=== PATIENT | male | born 1950 | race Caucasian/White ===

== ENCOUNTER 2016-07-15 17:26 | Inpatient (IN) | payer MEDICARE ==
[~2016-07-15] VITALS: Ht 170.2 cm; Wt 47.7 kg
[~2016-07-15 17:26] MED LIST: ATOR80TA75 PO; CARV3.122 PO
[2016-07-15 18:54] LABS: BLOOD UREA NITROGEN 42 mg/dL (7-18)
[2016-07-15 18:59] LABS: IS PT STATUS REG ER OR PRE ER? YES
[2016-07-15] MEDS ORDERED: MORPHINE SULFATE 4 MG/ML, 1ML IVPush PRN (20:00)
[2016-07-15] MEDS ORDERED: ENOXAPARIN 60 MG/0.6 ML SQ ONE (20:00)
[2016-07-15] MEDS ORDERED: NITROGLYCERIN OINT 2%, 1GM TP ONE ×2 (20:00→20:06)
[2016-07-15] MEDS ORDERED: MORPHINE SULFATE 4 MG/ML, 1ML ONE (20:05)
[2016-07-15] MEDS ORDERED: ENOXAPARIN 60 MG/0.6 ML ONE (20:06)
[2016-07-15] MEDS ORDERED: OMNIPAQUE 350 MG/ML, 75ML BOTTLE ONE (20:47)
[2016-07-15] MEDS ORDERED: POLYETHYLENE GLYCOL 17 GM PACKET PO PRN (21:00)
[2016-07-15] MEDS ORDERED: BISACODYL 10 MG SUPP PR PRN (21:00)
[2016-07-15] MEDS ORDERED: ASPIRIN 325 MG TABLET PO ONE (21:00)
[2016-07-15] MEDS ORDERED: ONDANSETRON 2MG/ML, 2ML IVP PRN (21:00)
[2016-07-15] MEDS ORDERED: NITROGLYCERIN 0.4 MG BOTTLE (25 TABS) SL PRN (21:00)
[2016-07-15 22:17] VITALS: BP 145/85
[2016-07-15 22:18] VITALS: BP 145/85
[2016-07-15 22:51] LABS: DAU SCREEN DISCLAIMER
[2016-07-15] MEDS: SODIUM CHLORIDE 0.9% 1,000 ML IV SCH (23:08)
[2016-07-15] MEDS: CARVEDILOL 3.125 MG TABLET PO SCH (23:09)
[2016-07-15] MEDS: ATORVASTATIN 80 MG TABLET PO SCH (23:10)
[2016-07-15] MEDS: NICOTINE 7 MG/24 HR PATCH.TD24 TD SCH ×2 (23:10→23:23)
[2016-07-15] MEDS: HEPARIN 5,000 UNITS/ML, 1ML SQ SCH ×2 (23:10→23:22)
[2016-07-15] MEDS: ACETAMINOPHEN 325 MG TABLET PO PRN (23:19)
[2016-07-16] MEDS: MORPHINE SULFATE 4 MG/ML, 1ML IVPush PRN ×6 (00:46→20:48)
[2016-07-16 01:19] LABS: IS PT STATUS REG ER OR PRE ER? NO
[2016-07-16 02:57] VITALS: BP 124/71
[2016-07-16] MEDS ORDERED: ASPIRIN 325 MG TABLET EC PO SCH (06:00)
[2016-07-16 07:14] LABS: BLOOD UREA NITROGEN 31 mg/dL (7-18)
[2016-07-16 07:20] LABS: ASPARTATE AMINO TRANSFERASE 20 U/L (15-37)
[2016-07-16 07:22] LABS: IS PT STATUS REG ER OR PRE ER? NO
[2016-07-16] MEDS: SENNA/DOCUSATE TABLET PO SCH (07:36)
[2016-07-16 08:04] VITALS: BP 137/90
[2016-07-16] MEDS: CARVEDILOL 3.125 MG TABLET PO SCH ×2 (08:07→20:50)
[2016-07-16] MEDS: SODIUM CHLORIDE 0.9% 1,000 ML IV SCH (08:12)
[2016-07-16] MEDS ORDERED: REGADENOSON 0.4 MG/5 ML SYRINGE ONE (10:21)
[2016-07-16] MEDS ORDERED: ALBUTEROL SULFATE 2.5 MG/3 ML ONE (11:36)
[2016-07-16] MEDS: ALBUTEROL/IPRATROPIUM 2.5MG/0.5MG, 3 ML NPPB PRN (11:49)
[2016-07-16 15:30] VITALS: BP 132/88
[2016-07-16] MEDS: HEPARIN 5,000 UNITS/ML, 1ML SQ SCH (18:16)
[2016-07-16 20:40] VITALS: BP 156/106
[2016-07-16] MEDS: ATORVASTATIN 80 MG TABLET PO SCH (20:49)
[2016-07-17 00:35] VITALS: BP 135/87
[2016-07-17] MEDS: HEPARIN 5,000 UNITS/ML, 1ML SQ SCH ×3 (01:00→17:00)
[2016-07-17] MEDS: MORPHINE SULFATE 4 MG/ML, 1ML IVPush PRN ×4 (03:50→19:48)
[2016-07-17] MEDS: ASPIRIN 81 MG TABLET CHEW PO SCH (04:43)
[2016-07-17] MEDS: SENNA/DOCUSATE TABLET PO SCH (08:00)
[2016-07-17] MEDS: CARVEDILOL 3.125 MG TABLET PO SCH ×2 (08:51→19:48)
[2016-07-17 09:04] VITALS: BP 117/81
[2016-07-17 14:36] VITALS: BP 133/89
[2016-07-17 19:41] VITALS: BP 154/89
[2016-07-17] MEDS: ATORVASTATIN 80 MG TABLET PO SCH (19:48)
[2016-07-17] MEDS: NICOTINE 7 MG/24 HR PATCH.TD24 TD SCH (19:49)
[2016-07-18 01:24] VITALS: BP 156/94
[2016-07-18] MEDS: MORPHINE SULFATE 4 MG/ML, 1ML IVPush PRN ×6 (01:32→21:14)
[2016-07-18] MEDS: HEPARIN 5,000 UNITS/ML, 1ML SQ SCH ×3 (01:39→17:43)
[2016-07-18] MEDS: ASPIRIN 81 MG TABLET CHEW PO SCH (06:05)
[2016-07-18 07:58] VITALS: BP 154/90
[2016-07-18] MEDS: SENNA/DOCUSATE TABLET PO SCH (09:00)
[2016-07-18] MEDS: ALBUTEROL/IPRATROPIUM 2.5MG/0.5MG, 3 ML NPPB PRN (09:24)
[2016-07-18] MEDS: CARVEDILOL 3.125 MG TABLET PO SCH ×2 (09:38→20:54)
[2016-07-18 12:49] VITALS: BP 120/85
[2016-07-18 15:45] VITALS: BP 163/94
[2016-07-18 19:37] VITALS: BP 133/85
[2016-07-18] MEDS: ATORVASTATIN 80 MG TABLET PO SCH (20:54)
[2016-07-18] MEDS: NICOTINE 7 MG/24 HR PATCH.TD24 TD SCH (20:55)
[2016-07-19] MEDS: MORPHINE SULFATE 4 MG/ML, 1ML IVPush PRN ×3 (00:29→09:08)
[2016-07-19] MEDS: HEPARIN 5,000 UNITS/ML, 1ML SQ SCH ×3 (00:29→16:44)
[2016-07-19 01:42] VITALS: BP 135/85
[2016-07-19] MEDS: ASPIRIN 81 MG TABLET CHEW PO SCH (05:15)
[2016-07-19] MEDS: CARVEDILOL 3.125 MG TABLET PO SCH ×2 (07:41→20:22)
[2016-07-19] MEDS: SENNA/DOCUSATE TABLET PO SCH (07:42)
[2016-07-19 08:00] VITALS: BP 140/107
[2016-07-19 13:39] VITALS: BP 149/79
[2016-07-19] MEDS ORDERED: ATOR80TA75 PO (13:57)
[2016-07-19] MEDS ORDERED: POTA10TA31 PO (13:57)
[2016-07-19] MEDS ORDERED: CARV3.122 PO (13:57)
[2016-07-19] MEDS ORDERED: ASPI-515 PO (13:57)
[2016-07-19] MEDS ORDERED: LISI5TAB7 PO (13:57)
[2016-07-19] MEDS ORDERED: FURO-93 PO (13:57)
[2016-07-19] MEDS ORDERED: SPIR25TA PO (13:58)
[2016-07-19] MEDS: ACETAMINOPHEN 325 MG TABLET PO PRN (15:44)
[2016-07-19 19:33] VITALS: BP 150/81
[2016-07-19] MEDS: ATORVASTATIN 80 MG TABLET PO SCH (20:21)
[2016-07-19] MEDS: OXYcodone/APAP 5/325MG TABLET PO PRN (20:22)
[2016-07-19] MEDS: NICOTINE 7 MG/24 HR PATCH.TD24 TD SCH (20:23)
[2016-07-19] MEDS: ALBUTEROL/IPRATROPIUM 2.5MG/0.5MG, 3 ML NPPB PRN (21:25)
[2016-07-19] MEDS ORDERED: LORazepam 0.5MG TABLET PO PRN (22:00)
[2016-07-20] MEDS: HEPARIN 5,000 UNITS/ML, 1ML SQ SCH ×2 (01:00→09:11)
[2016-07-20 01:03] VITALS: BP 129/76
[2016-07-20] MEDS: OXYcodone/APAP 5/325MG TABLET PO PRN ×2 (03:41→09:51)
[2016-07-20] MEDS: ASPIRIN 81 MG TABLET CHEW PO SCH (05:09)
[2016-07-20 07:47] VITALS: BP 147/82
[2016-07-20] MEDS: SENNA/DOCUSATE TABLET PO SCH (09:10)
[2016-07-20] MEDS: CARVEDILOL 3.125 MG TABLET PO SCH (09:11)
== END 2016-07-20 11:52 | disposition home or self-care (01) | DRG 302 ==
LOC: ED 19:49 → EDIP 19:55 → 5SO 21:11 → 3NE 07-18 15:45
PROVIDERS: ADMIT Internal Medicine; ATTEND Family Medicine
DX: I25.10 Atherosclerotic heart disease of native coronary artery without angina pectoris (principal); I50.43 Acute on chronic combined systolic (congestive) and diastolic (congestive) heart failure; E87.1 Hypo-osmolality and hyponatremia; E44.0 Moderate protein-calorie malnutrition; D68.69 Other thrombophilia; Z68.1 Body mass index [BMI] 19.9 or less, adult; I11.0 Hypertensive heart disease with heart failure; E78.5 Hyperlipidemia, unspecified; I48.91 Unspecified atrial fibrillation; J44.9 Chronic obstructive pulmonary disease, unspecified; D72.829 Elevated white blood cell count, unspecified; R73.9 Hyperglycemia, unspecified; F17.200 Nicotine dependence, unspecified, uncomplicated; I25.2 Old myocardial infarction; Q67.6 Pectus excavatum; Z59.0 Homelessness; Z80.3 Family history of malignant neoplasm of breast; Z91.19 Patient's noncompliance with other medical treatment and regimen; Z95.5 Presence of coronary angioplasty implant and graft; Z82.3 Family history of stroke; R91.1 Solitary pulmonary nodule
CPT/HCPCS: 36415; 71010; 71260; 78452; 80048; 80053; 80307; 81003; 82040; 83880; 84439; 84443; 84484; 85025; 87324; 93005; 93017; 94640; 96372; 96374; J1644; J1650; J2785; J7613; J7620; Q9967; A9502; C9898; J7030

== ENCOUNTER 2016-07-20 22:21 | Emergency (ER) | payer MEDICARE ==
[~2016-07-20] VITALS: Ht 177.8 cm; Wt 84.0 kg
[~2016-07-20 22:21] MED LIST changes: +ASPI-515 PO; +FURO-93 PO; +LISI5TAB7 PO; +POTA10TA31 PO; +SPIR25TA PO
[2016-07-21 01:25] VITALS: BP 139/81
== END 2016-07-21 01:56 | disposition home or self-care (01) ==
LOC: ED 23:59
DX: J44.1 Chronic obstructive pulmonary disease with (acute) exacerbation (principal); I10 Essential (primary) hypertension; F17.210 Nicotine dependence, cigarettes, uncomplicated; I51.9 Heart disease, unspecified; I50.9 Heart failure, unspecified; Z59.0 Homelessness
CPT/HCPCS: 36415; 71010; 84484